=== PATIENT | female | born 1965 | race Caucasian/White ===

== ENCOUNTER → 2016-08-13 | Outpatient (CLI) | payer MEDICARE, OTHER ==
[~2016-08-13] MED LIST: ABIL5TAB6 PO; ALBUAER3 INH; APRI0.372 PO; ASPI1TAB69 PO; CAPT50TA PO; CYMB60CA PO; DIAZ10TA PO; DIAZ5TAB PO; FLON0.053; FOLI800T12 PO; FURO20TA PO; GLUC1000 PO; IPRASOL INH; LEVO100T5 PO; LISI10TA3 PO; LYRI100C PO; MELA1TAB18 PO; PANT40TA3 PO; PERC10TA27 PO; PHEN1TAB84 PO; PROT40TA PO; RANI150T PO; SIMV20 PO; SPIR50TA PO; SYMB160A INH
[2016-08-13 14:08] LABS: HDL CHOLESTEROL 40.7 MG/DL (40.0-60.0)
== END ==
LOC: CLAB 13:15
PROVIDERS: ATTEND Family Medicine
DX: R73.03 Prediabetes (principal); I10 Essential (primary) hypertension; E03.9 Hypothyroidism, unspecified; E66.9 Obesity, unspecified
CPT/HCPCS: 36415; 80061; 84443

== ENCOUNTER → 2016-11-19 | Outpatient (CLI) | payer MEDICARE, OTHER ==
[~2016-11-19] MED LIST changes: +ADIP37.55 PO; -DIAZ10TA PO; -PANT40TA3 PO; -RANI150T PO; -SIMV20 PO; -SPIR50TA PO; -SYMB160A INH; +ZALE5CAP PO
[2016-11-19 11:28] LABS: HEMATOCRIT 47.9 % (35.0-46.0); MEAN CELL VOLUME 90.1 FL (80.0-100.0); MEAN CORPUSCULAR HEMOGLOBIN 30.5 PG (27.0-34.0); MEAN CORPUSCULAR HGB CONC 33.8 % (32.0-36.0); PLATELET COUNT 231 TH/MM3 (150-450); RED BLOOD COUNT 5.31 MIL/MM3 (4.00-5.30); RED CELL DISTRIBUTION WIDTH 13.4 % (11.6-17.2); REVIEW FLAG FINAL
[2016-11-19 12:15] LABS: BICARBONATE 32.1 MEQ/L (21.0-32.0)
[2016-11-19 12:18] LABS: POTASSIUM 4.2 MEQ/L (3.5-5.1)
== END ==
LOC: CLAB 11:09
PROVIDERS: ATTEND Family Medicine
DX: E53.8 Deficiency of other specified B group vitamins (principal); E03.9 Hypothyroidism, unspecified; I10 Essential (primary) hypertension; R73.03 Prediabetes; Z00.00 Encounter for general adult medical examination without abnormal findings; Z68.39 Body mass index [BMI] 39.0-39.9, adult
CPT/HCPCS: 36415; 80048; 82607; 85027

== ENCOUNTER → 2017-03-10 | Outpatient (CLI) | payer MEDICARE, MEDICAID ==
[~2017-03-10] MED LIST changes: -ABIL5TAB6 PO; +AMLO10TA2 PO; +ARIP1TAB11 PO; -CAPT50TA PO; -DIAZ5TAB PO; -FLON0.053; +FLUT50SP EACH NARE; -PHEN1TAB84 PO; +SYMB160A INH; +[UNRECOGNIZED DRUG - CODE] PO
--- NOTE | 2017-03-16 09:21 | RSPPFT ---
DATE OF PROCEDURE: 03/10/17 COMMENTS: Spirometry with FVC of 1.4, FEV1 of 0.9, FEV1/FVC ratio at 68%. A positive but non-significant response to acutely inhaled bronchodilator noted. IMPRESSION: 1. Severe airways obstruction. 2. Positive but non-significant response to acutely inhaled bronchodilator.
== END ==
LOC: HRSP 08:53
PROVIDERS: ATTEND Family Medicine
DX: R06.02 Shortness of breath (principal)
CPT/HCPCS: 94060; 94726; 94729

== ENCOUNTER → 2017-08-29 | Outpatient (CLI) | payer MEDICARE, MEDICAID ==
[2017-08-29 11:32] LABS: HEMATOCRIT 45.3 % (35.0-46.0); HEMOGLOBIN 15.6 GM/DL (11.6-15.3); MEAN CELL VOLUME 89.6 FL (80.0-100.0); MEAN CORPUSCULAR HEMOGLOBIN 30.8 PG (27.0-34.0); MEAN CORPUSCULAR HGB CONC 34.4 % (32.0-36.0); MEAN PLATELET VOLUME 7.3 FL (7.0-11.0); PLATELET COUNT 262 TH/MM3 (150-450); RED BLOOD COUNT 5.05 MIL/MM3 (4.00-5.30); RED CELL DISTRIBUTION WIDTH 14.4 % (11.6-17.2); REVIEW FLAG FINAL; WHITE BLOOD COUNT 7.2 TH/MM3 (4.0-11.0)
[2017-08-29 12:07] LABS: HDL CHOLESTEROL 45.1 MG/DL (40.0-60.0)
[2017-08-29 12:14] LABS: ANION GAP 3 MEQ/L (5-15); BICARBONATE 32.5 MEQ/L (21.0-32.0); BLOOD UREA NITROGEN 10 MG/DL (7-18); CHLORIDE 106 MEQ/L (98-107); CHOLESTEROL 214 MG/DL (120-200); CHOLESTEROL/ HDL RATIO 4.74 RATIO; CREATININE 0.77 MG/DL (0.50-1.00); GLOMERULAR FILTRATION RATE 78 ML/MIN (>89); GLUCOSE,FASTING 92 MG/DL (74-99); LDL CHOLESTEROL 136 MG/DL (0-99); POTASSIUM 4.2 MEQ/L (3.5-5.1); SODIUM (NA) 141 MEQ/L (136-145); TRIGLYCERIDES 167 MG/DL (42-150)
[2017-08-29 16:31] LABS: HEMOGLOBIN A1C 6.4 % (4.3-6.0); HEMOGLOBIN A1a 1.2 %; HEMOGLOBIN A1b 1.9 %; HEMOGLOBIN Ao 84.1 %; HEMOGLOBIN P3 3.7 %
== END ==
LOC: CLAB 11:08
DX: J44.9 Chronic obstructive pulmonary disease, unspecified (principal); E03.9 Hypothyroidism, unspecified; R73.03 Prediabetes; I10 Essential (primary) hypertension; Z68.41 Body mass index [BMI] 40.0-44.9, adult
CPT/HCPCS: 36415; 80048; 80061; 83036; 84443; 85027